=== PATIENT | female | born 1990 | race Caucasian/White ===

== ENCOUNTER 2025-07-07 19:46 | Emergency (ER) | payer BC, SELFPAY ==
[2025-07-07 19:55] VITALS: BP 138/84; PULSE 105; RESP 18; TEMP 36.4; O2SAT 98; BMI 22.4
[2025-07-07 19:59] LABS: Appearance Urine Clear (Clear)
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
--- OUTSIDE RECORDS SUMMARY | 2025-07-07 20:24 | XMS_ITS | Clinical Summary ---
Author Organization [facility] Address [address] [place] [id number] Phone Care Team Providers Care Biodiesel Engineering Manager Name Role Phone Elsewhere, Pcp Primary Care Provider Sarah Wooten MD Unavailable [phone] Allergies No known active allergies Medications * This document contains information received from the source organization and may not represent a complete record from that organization. citalopram (CELEXA) 10 MG tablet Take 1 Tab by mouth one time a day. 31 Tab 3 8 Active citalopram (CELEXA) 20 MG tablet 20 mg daily x 2 weeks then may increase to 40 mg 60 Tab 2 8 Active omeprazole (PRILOSEC) 20 MG delayed-release capsule Take 1 Cap by mouth one time a day. Take before meals. Do not crush. 31 Cap 11 8 Active Zofran ODT 4 MG disintegrating tablet Take 1 Tab by mouth every six hours as needed for Nausea or Vomiting. 10 Tab 0 Active Active Problems Problem Noted Date Diagnosed Date History of gestational diabetes 11/07/2018 Rh negative state in antepartum period 8 care, subsequent 04/30/2018 PTSD (post-traumatic stress disorder) 02/27/2018 Alcohol use disorder, severe, dependence 018 Overview (02/27/2018): Sober 53 days as of 02/27/18. Cannabis dependence 02/27/2018 Overview (02/27/2018): Sober 53 days as of 02/27/18. Benzodiazepine dependence 02/27/2018 Overview (02/27/2018): Sober 53 days as of 02/27/2018 Stimulant use disorder 02/27/2018 Overview (02/27/2018): History of meth, cocaine and prescription stimulants. Tobacco dependence 02/27/2018 Esophageal reflux 08/15/2007 Major depressive disorder, recurrent episode, mo derate 07/18/2007 Nausea with vomiting 07/01/2007 Resolved Problems Problem Noted Date Diagnosed Date Resolved Date Abdominal pain, generalized 07/01/2007 04/30/2018 Overview (02/09/2012): IMO Update 08/01 Lyme disease 10/10/2001 04/30/2018 Immunizations Immunization Administration Dates Next Due DTaP <7 years 08/04/1994 Human Papilloma Virus 9 07/01/2015 Human Papilloma Virus Quadrivalent 05/04/2014, Influenza Trivalent Live Int ranasal (Flumist) 11/12/2009 Influenza Trivalent Preservative Free 07/13/2010 Influenza Unspecified Formulation 11/12/2009 MMR 08/05/2009,12/21/2008,08/04/1994 OPV (Historic Use Only) 08/04/1994 Tdap (7 years and older) 10/30/2018,05/27/2013 Tdap-Tetanus, Diphtheria, Pertussis 11+ Yrs 10/2005 Surgical History Surgery Date Site/Laterality Comments KNEE ARTHROSCOPY/SURGERY 10/10/2000 left EGD BIOPSY SINGLE/MULTIPLE 07/03/2007 UPPER GASTROINTESTINAL ENDOSCOPY 12/26/2016 ([employer]) Medical History Medical History Date Comments Lyme disease 10/10/2001 Other, mixed, or unspecified nondependent drug abuse, unspecified 10/31/2006 Marijuana use cur rently and methamphetamine and adderall abuse in the past Abdominal pain, unspecified site 10/11/2006 Dysuria 10/11/2006 Urinary tract infection, sit e not specified 10/11/2006 Acute pharyngitis 10/11/2006 Multiple times Other malaise and fatigue 08/22/2006 Pain in limb 07/16/2006 Right lower extr emity pain chronic Contusion of elbow 07/16/2006 Right Sprain and strain of unspeci fied site of knee and leg 07/09/2006 Left Myopia 10/02/2001 Astigmatism, unspecified 10/02/2001 Nausea with vomiting 07/03/2006 Other specified disorder of the esophagus 07/03/2007 Orthostatic hypotension 09/14/2008 Drug reaction 09/14/2008 Possible drug re action (Ativan) Family History Medical History Relation Comments Asthma Brother Diabetes Father Other Endocrine Disease Father hypothyr oid, hypertension, Psychiatric Disease Father Bipolar, PTS D, Manic depression Asthma Mother Psychiatric Disease Mother Bipolar Ophthalmic Disease Other Myopia Other Endocrine Disease Sister 1 hypothyr oid Psychiatric Disease Sister 2 Bipolar Blood Disease Negative Family Hx Cancer Negative Family Hx Cardiovascular Disease Negative Family Hx GI Disease Negative Family Hx Relation Status Comments Brother Father Mother Other Sister 1 Sister 2 Social History Tobacco Use Types Packs/Day Years Used Date Smoking Tobacco: Former Cigarettes 0.5 2 1 12/08/2005 - 10/07/2008 Smokeless Tobacco: Never Tobacco Cessation:Ready to Q uit: No; Counseling Given: Yes Alcohol Use Standard Drinks/Week Comments No 0 (1 standard drink = 0.6 oz pur e alcohol) PHQ-2 Answer Date Recorded PHQ-2 Score 0 08/11/2018 Comments No Sex and Gender Information Value Date Recorded Sex Assigned at Not on file Legal Sex Female 2:00 AM GAME BIRD FARMER Gender Identity Not on file Sexual Orientation Not on file Obstetrics History Para Term AB IAB SAB Ectopic Molar Multiple Living Live Births 5 3 3 0 1 0 1 0 0 3 3 Date Outcome GA Total Labor Labor/2nd/3rd Weight Sex Type Anes PTL Esperanza A1 A5 Name Clin 2009 Term 38w 0d 2608 g (5 lb 12 oz) F INDUCT ION Epidur al Livin g Delivery Location:[facility] [place] 2011 SAB 5w0 d SAB 2012 Term 38w 3d 3204 g (7 lb 1 oz) M INDUCT ION Epidur al N Livin g Complications:Other Excessiv e Bleeding Delivery Location:[facility] 2016 Term 39w 0d 2948 g (6 lb 8 oz) F INDUCT ION Epidur al N Livin g Delivery Location:[facility] [place] Last Filed Vital Signs Vital Sign Reading Time Taken Comments Blood Pressure 124/85 10/07/2020 1:31 AM GAME BIRD FARMER Pulse 88 10/07/2020 1:31 AM GAME BIRD FARMER Temperature 37.6 C (99.6 F) 10/07/2020 1:31 AM GAME BIRD FARMER Respiratory Rate 17 10/07/2020 1:31 AM GAME BIRD FARMER Oxygen Saturation 100% 10/07/2020 1:31 AM GAME BIRD FARMER Inhaled Oxygen Concentration - - Weight 65.8 kg (145 lb) 10/06/2020 6:01 PM GAME BIRD FARMER Height 170.2 cm (5' 7) 10/06/2020 6:01 PM GAME BIRD FARMER Body Mass Index 22.71 10/06/2020 6:01 PM GAME BIRD FARMER Plan of Treatment Health Maintenance Due Date Last Done Comments Cervical Cancer Screening 1991 Last pap w/ HPV Testing 1991 Last pap w/o HPV Testing 1991 Hepatitis B Vaccine (Standin g Order) (1 of 3 - 19+ 3-dose series) 2010 Pneumococcal/PCV20 Vaccine: Pediatrics (2-5 yrs) and At-Risk Patients (6-49 yrs) (Standing Order) (1 of 2 - PCV) 2010 Influenza Vaccine Seasonal (Standing Order) (#1) 2025 07/13/2010, 11/12/2009, 11/12/2009 TETANUS (Standing Order) 10/30/2028 019, 05/27/2013, 08/22/2006, Additional history exists HPV Vaccine (Standing Order) Completed 07/2015, 05/04/2014, 11/02/2006 PERTUSSIS (Standing Order) Completed 10/30, 05/27/2013, 08/22/2006, Additional history exists Insurance [facility] Care Teams Biodiesel Engineering Manager Relationship Specialty Start Date End Date Elsewhere, Pcp PCP - General 02/09/11 Sarah Hdz MD [facility] [address] [place] [phone] Molding Sander residential insurance inspector 06/06/18
--- OUTSIDE RECORDS SUMMARY | 2025-07-07 20:24 | XMS_ITS | Clinical Summary ---
Author Organization [facility] Address [address] [place] [address] Care Team Providers Care Finisher Operator Name Role Phone No Primary/Referring, Phy Primary Care Provider Unavailable Source Comments You are receiving this document as you are listed as the primary care provider,follow-up provider, or the patient has been referred to you for consultation.This is in compliance with the Medicare and[facility] EHR Incentive Program,which states Providers who transition their patient to another setting of careor provider of care or refers their patient to another provider of care shouldprovide summary care record for each transition of care or referral. [employer] Allergies No known active allergies Medications multivitamin with minerals tablet Take 1 Tablet by mouth. 12/25/19 18 Active desvenlafaxine (PRISTIQ) 25 MG 24 hour release tablet Take 25 mg by mouth. 06/20/20 19 Active prazosin (MINIPRESS) 2 MG capsule TAKE 1 CAPSULE BY MOUTH THREE TIMES DAILY 270 Capsule 3 03/12/20 20 Active Additional Information Patient not taking.Reported on 07/05/2022 hydrOXYzine pamoate (VISTARIL) 50 MG capsule TAKE 1 CAPSULE BY MOUTH FOUR TIMES DAILY 120 Capsule 03/23/20 20 Active escitalopram oxalate (LEXAPRO) 20 MG tablet Take 1 Tablet by mouth daily. 90 Tablet 1 08/03/20 20 Active Additional Information Patient not taking.Reported on 07/05/2022 QUEtiapine (SEROQUEL) 50 MG tablet Take 1 Tablet (50 mg) by mouth two times a day. Active LORazepam (ATIVAN) 0.5 MG tablet Take 1 Tablet (0.5 mg) by mouth daily as needed. Active ondansetron (ZOFRAN-ODT) 4 MG disintegrating tablet Take by mouth. Activ e Active Problems Problem Noted Date Diagnosed Date Migraine headache 01/08/2020 Left hand pain 05/13/2019 History of gestational diabetes 11/07/2018 Gestational diabetes mellitu s (GDM) in third trimester controlled on oral hypoglycemic drug 11/05/2018 care, subsequent 04/30/2018 Rh negative state in antepartum period 8 Benzodiazepine dependence 02/27/2018 Overview (01/06/2020): Sober 53 days as of 02/27/2018 Cannabis dependence 02/27/2018 Overview (01/06/2020): Sober 53 days as of 02/27/18. PTSD (post-traumatic stress disorder) 02/27/2018 Stimulant use disorder 02/27/2018 Overview (01/06/2020): History of meth, cocaine and prescription stimulants. Tobacco dependence 02/27/2018 Tarsal tunnel syndrome, right 01/10/2018 Adjustment disorder with mixed anxiety and depre ssed mood 09/18/2017 Indication for care in labor and delivery, antep artum 06/16/2017 Eating disorder, nonorganic 10/26/2015 Hematuria 01/13/2015 Panic disorder without agoraphobia 05/03/2012 Supervision of normal first 03/16/2010 Alcohol dependence 11/05/2009 Overview (06/13/2017): Other and unspecified alcohol dependence, unspecified drinking behavior Lyme disease 11/03/2009 Overview (11/03/2009): States dxd 1999 Drug dependence 11/03/2009 Overview (07/22/2015): meth Epic Cannabis abuse 07/25/2009 Overview (01/06/2020): Utox positive 07/30 Combinations of drug dependence excluding opioid type drug 07/25/2009 Esophageal reflux 08/15/2007 Major depressive disorder, recurrent episode, mo derate 07/18/2007 Nausea with vomiting 07/01/2007 History of self-harm History of suicidal ideation Overview (05/26/2016): hospitalization three times for suicidal ideations (72 hours, 3 wks, 2 wks) Depression Anxiety Immunizations Immunization Administration Dates Next Due 4vHPV (Gardasil) 05/04/2014,11/02/2006 9vHPV (Gardasil 9) 07/01/2015 DTaP 08/04/1994 Flu Vac Preserv Free (3+yrs) 07/13/2010 Influenza LAIV3 2-49 years (Flumist) 11/12/2009 MMR 08/05/2009,12/21/2008,08/04/1994 OPV, Trivalent (Orimune or tOPV) 08/04/1994 Tdap 10/30/2018,05/27/2013,08/22/2006 Social History Tobacco Use Types Packs/Day Years Used Date Smoking Tobacco: Every Day Smokeless Tobacco: Never Alcohol Use Standard Drinks/Week Comments Not Currently 1 (1 standard drink = 0.6 oz pur e alcohol) No alcohol since 04/25/19 Comments No Sex and Gender Information Value Date Recorded Sex Assigned at Not on file Legal Sex Female 6:24 AM CDT Gender Identity Not on file Sexual Orientation Not on file Last Filed Vital Signs Vital Sign Reading Time Taken Comments Blood Pressure 117/92 09/27/2024 1:13 PM BACK STAYER Pulse 69 09/27/2024 1:13 PM BACK STAYER Temperature 36.6 C (97.9 F) 09/27/2024 1:13 PM BACK STAYER Respiratory Rate 16 09/27/2024 1:13 PM BACK STAYER Oxygen Saturation 99% 09/27/2024 1:13 PM BACK STAYER Inhaled Oxygen Concentration - - Weight 63.9 kg (140 lb 12.8 oz) 09/27/2024 1:13 PM BACK STAYER Height 171.1 cm (5' 7.36) 10/26/2015 1:08 PM CS T Body Mass Index 21.82 10/26/2015 1:08 PM BACK STAYER Plan of Treatment Health Maintenance Due Date Last Done Comments Cervical Cancer Screening Due 1991 Hep C Screening (Preventive Services) 1991 IPV (Polio) Vaccine (2 of 3 - 4-dose series) 09/01/1994 08/04/1994 Adult Preventive Visit 2009 HepB Vaccine (1) 2010 Pneumococcal Vaccine (1 of 2 - PCV) 2010 COVID-19 Vaccine (1 - 2023- season) 2025 Influenza Vaccine (#1) 2025 07/13/2010, 2009 DTaP/Tdap/Td Vaccine (5 - Tdap) 10/30/2028 10/30/2018, 05/27/2013, 08/22/2006, Additional history exists Zoster/Shingles Vaccine (1 of 2) 2041 HPV Vaccine Completed 07/01/2015, 04/21, 11/02/2006 HIV Screening (Preventive Services) Completed 04/26/2019 HepA Vaccine Aged Out No longer eligi ble based on patient's age to complete this topic Hib Vaccine Aged Out No longer eligi ble based on patient's age to complete this topic MCV4 Vaccine Aged Out No longer eligi ble based on patient's age to complete this topic Meningococcal B Vaccine Aged Out No l onger eligible based on patient's age to complete this topic [facility] Care Teams Finisher Operator Relationship Specialty Start Date End Date No Primary/Referring, Phy PCP - General 01/24/16
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
--- OUTSIDE RECORDS SUMMARY | 2025-07-07 20:24 | XMS_ITS | Clinical Summary ---
Author Organization [place] Address [address] [place] [address]. [place] [address] Care Team Providers Care Sawmilling Operator Name Role Phone No Ref-Primary, Physician Primary Care Provider Allergies No known active allergies Medications * This document contains information received from the source organization and may not represent a complete record from that organization. divalproex sodium extended-release (DEPAKOTE ER) 500 MG 24 hr tabletIndication s:Chemical dependency (H) Take 1 tablet (500 mg) by mouth At Bedtime 30 tablet 12/23/2017 Active traZODone (DESYREL) 50 MG tabletIndication s:Chemical dependency (H) Take 1 tablet (50 mg) by mouth nightly as needed for sleep 30 tablet 12/23/2017 Active multivitamin, therapeutic with minerals (THERA-VIT-M) TABS tabletIndication s:Chemical dependency (H) Take 1 tablet by mouth daily 30 each 12/24/2017 Active pantoprazole (PROTONIX) 40 MG EC tabletIndication s:Gastroesophage al Reflux Disease Take 1 tablet (40 mg) by mouth every morning (before breakfast) 30 tablet 12/24/2017 Active thiamine 100 MG tabletIndication s:Chemical dependency (H) Take 1 tablet (100 mg) by mouth daily 30 tablet 12/24/2017 Active Active Problems Problem Noted Date Diagnosed Date Chemical dependency 12/21/2017 Indication for care in labor and delivery, antep artum 06/16/2017 Marijuana abuse 07/25/2009 Overview (07/25/2009): Utox positive 07/30 Social History Tobacco Use Types Packs/Day Years Used Date Smoking Tobacco: Every Day Cigarettes Smokeless Tobacco: Never Tobacco Cessation:Ready to Q uit: No Alcohol Use Standard Drinks/Week Comments Yes 0 (1 standard drink = 0.6 oz pur e alcohol) uses hard liquor everyday Comments Unknown Sex and Gender Information Value Date Recorded Sex Assigned at Female 01/09/2024 7:46 PM CDT Legal Sex Female 4:52 AM CLOD PULLER Gender Identity Female 01/09/2024 7:46 PM CDT Sexual Orientation Straight 01/09/2024 7: 46 PM CDT Last Filed Vital Signs Vital Sign Reading Time Taken Comments Blood Pressure 132/89 12/24/2017 8:18 AM CLOD PULLER Pulse 68 12/24/2017 8:18 AM CLOD PULLER Temperature 36.2 C (97.1 F) 12/24/2017 8:18 AM CLOD PULLER Respiratory Rate 16 12/24/2017 8:18 AM CLOD PULLER Oxygen Saturation 100% 12/21/2017 3:17 AM CLOD PULLER Inhaled Oxygen Concentration - - Weight 61.2 kg (135 lb) 12/21/2017 12:45 AM CLOD PULLER Height 170.2 cm (5' 7) 12/21/2017 12:45 AM CLOD PULLER Body Mass Index 21.14 12/21/2017 12:45 AM CLOD PULLER Plan of Treatment Not on file Advance Directives For more information, please contact: [phone] * Full Code (Latest Code Status on File) Date Activated Date Inactivated Comments 12/21/2017 3:41 AM 12/24/2017 4:07 PM Care Teams Sawmilling Operator Relationship Specialty Start Date End Date No Ref-Primary, Physician PCP - General 12/21/17
--- NOTE | 2025-07-07 20:42 | CRLHL7_ITS ---
For Patients: As a result of the Century Cures Act, medical imaging exams and procedure reports are released immediately into your electronic medical record. You may view this report before your referring provider. If you have questions, please contact your health care provider. INDICATION: Hematuria. TECHNIQUE: CT abdomen and pelvis without contrast. COMPARISON: None. FINDINGS: Lower chest: Unremarkable. Liver: Normal in size and attenuation. No suspicious masses. Gallbladder and bile ducts: No stones or inflammation. No biliary dilatation. Pancreas: Unremarkable. No mass or inflammation. Spleen: Normal in size. No masses. Adrenal glands: Normal in size. No nodules. Kidneys: Normal in size. No suspicious masses, stones, or hydronephrosis. GI tract: Mild colonic stool burden. Normal in caliber. No sign of mass or inflammation. Normal appendix. Vasculature: Abdominal aorta is normal in caliber. Lymph nodes: No lymphadenopathy. Peritoneum/Abdominal Wall: Unremarkable. No sign of mass or infiltration. No free air or significant free fluid. Pelvis: Trace free fluid in the pelvis, likely physiologic. Mildly distended bladder with circumferential wall thickening. No pelvic masses. Bones: Unremarkable for age. IMPRESSION: No acute intra-abdominal/pelvic abnormality, including obstructive uropathy. Mildly distended bladder with circumferential wall thickening. Recommend correlation with urinalysis if UTI suspected. Trace free fluid in the pelvis, likely physiologic. Moderate colonic stool burden. Please note that all CT scans at this facility use dose modulation, iterative reconstruction, and/or weight-based dosing when appropriate to reduce radiation dose to as low as reasonably achievable. Dictated by Ho Desir MD @ 07/07/2025 9:24:13 PM (Electronically Signed)
[2025-07-07 21:03] LABS: Hematocrit* 34.8 % (33.0-51.0); Hemoglobin* 11.8 gm/dL (12.0-16.0); Immature Granulocytes Abs Auto 0.01 K/uL (0.00-0.30); Immature Granulocytes Pct Auto 0.2 %; Lymphocytes Absolute Auto 1.42 K/uL (0.90-2.90); Mean Corpuscular HGB Conc 34 gm/dL (32-36); Mean Corpuscular Hemoglobin 32 pg (26-34); Mean Corpuscular Volume 94 fL (80-100); RDW Coefficient of Variation % 12.0 % (11.5-15.5); Red Blood Count* 3.71 m/uL (4.00-5.20); White Blood Count* 6.38 K/uL (4.50-11.00)
[2025-07-07 21:04] LABS: Slide Review Reflex No
[2025-07-07 21:24] LABS: Chloride* 104 mmol/L (96-114); Sodium* 137 mmol/L (135-149)
[2025-07-07 21:25] LABS: Potassium* 3.8 mmol/L (3.6-5.1)
[2025-07-07 21:27] LABS: Anion Gap 8 mEq/L (7-15); Blood Urea Nitrogen* 17 mg/dL (5-24); Carbon Dioxide* 25 mmol/L (20-32); Creatine Kinase* 124 U/L (41-117); Creatinine* 0.7 mg/dL (0.5-1.5); Est. Creatinine Clearance* 110.12; Estimated Glomerular Filt Rate 116 ml/min
[2025-07-07 21:28] LABS: Calcium* 9.1 mg/dL (8.4-10.6); Glucose* 104 mg/dL (60-115)
== END 2025-07-07 22:05 | disposition home or self-care (01) ==
PROVIDERS: Emergency Provider Family Medicine
DX: R31.9 Hematuria, unspecified (principal)
CPT/HCPCS: 36415; 74176; 80048; 81001; 82550; 85025; 87086; 96360; 99284; J7030

== ENCOUNTER 2025-08-20 21:15 | Emergency (ER) | payer BC, SELFPAY ==
--- OUTSIDE RECORDS SUMMARY | 2025-08-20 21:18 | XMS_ITS | Clinical Summary ---
Author Organization [facility] Address [address] [place] [phone] Phone Care Team Providers Care Devops Solutions Architect Name Role Phone Elsewhere, Pcp Primary Care Provider Sarah Wooten MD Unavailable Allergies No known active allergies Medications * [...] 07/13/2010 Influenza Unspecified Formulation 11/12/2009 MMR 08/05/2009,12/21/2008,08/04/1994 Mantoux 10/31/2006 Mantoux 0mm Induration 11/02/2006 OPV (Historic Use Only) 08/04/1994 Tdap (7 years and older) 10/30/2018,05/27/2013 Tdap-Tetanus, Diphtheria, Pertussis 11+ Yrs 11/0 10/2005 Surgical History Surgery Date Site/Laterality Comments KNEE ARTHROSCOPY/SURGERY 10/10/2000 left EGD BIOPSY SINGLE/MULTIPLE 07/03/2007 UPPER GASTROINTESTINAL ENDOSCOPY 12/26/2016 ([facility] Medical History Medical History Date Comments Lyme [...] on file Legal Sex Female 2:00 AM LABEL CUTTER Gender Identity Not on file Sexual Orientation [...] INDUCT ION Epidur al Livin g [place] [place] 2011 SAB 5w0 d SAB 2012 Term 38w 3d 3204 g (7 lb 1 oz) M INDUCT ION Epidur al N Livin g Complications:Other Excessiv e Bleeding Delivery Location:[facility] 2016 Term 39w 0d 2948 g (6 lb 8 oz) F INDUCT ION Epidur al N Livin g Delivery Location:[facility] Last Filed Vital Signs Vital Sign Reading Time Taken Comments Blood Pressure 124/85 10/07/2020 1:31 AM LABEL CUTTER Pulse 88 10/07/2020 1:31 AM LABEL CUTTER Temperature 37.6 C (99.6 F) 10/07/2020 1:31 AM LABEL CUTTER Respiratory Rate 17 10/07/2020 1:31 AM LABEL CUTTER Oxygen Saturation 100% 10/07/2020 1:31 AM LABEL CUTTER Inhaled Oxygen Concentration - - Weight 65.8 kg (145 lb) 10/06/2020 6:01 PM LABEL CUTTER Height 170.2 cm (5' 7) 10/06/2020 6:01 PM LABEL CUTTER Body Mass Index 22.71 10/06/2020 6:01 PM LABEL CUTTER Plan of Treatment Health Maintenance Due Date Last Done Comments Cervical Cancer Screening 1991 Last pap w/ HPV Testing 1991 Last pap w/o HPV Testing 1991 Hepatitis B Vaccine (Standing Order) (1 of 3 - 19+ 3-dose series) 2010 COVID-19 Vaccine ( season) 2025 Influenza Vaccine Seasonal (Standing Order) (#1) 2025 07/13/2010, 11/12/2009, 11/12/2009 TETANUS (Standing Order) 10/30/2028 019, 05/27/2013, 08/22/2006, Additional history exists HPV Vaccine (Standing Order) Completed 07/01/2015, 05/04/2014, 11/02/2006 PERTUSSIS (Standing Order) Completed 10/30, 05/27/2013, 08/22/2006, Additional history exists Pneumococcal/PCV20 Vaccine: Pediatrics (2-5 yrs) and At-Risk Patients (6-49 yrs) (Standing Order) Aged Out No longer eligible based on patient's age to complete this topic Insurance [facility] Care Teams Devops Solutions Architect Relationship Specialty Start Date End Date Elsewhere, Pcp PCP - General 02/09/11 Sarah Hdz MD [facility] [address] [phone] Any Commodity Buyer orthopedic technician 06/06/18
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
--- OUTSIDE RECORDS SUMMARY | 2025-08-20 21:18 | XMS_ITS | Clinical Summary ---
Author Organization [facility] Address [address] [place] [address] Care Team Providers Care Airport Driver Name Role Phone No Primary/Referring, Phy Primary Care Provider Unavailable Source Comments You are receiving this document as you are listed as the primary care provider,follow-up provider, or the patient has been referred to you for consultation.This is in compliance with the Medicare and[facility] EHR Incentive Program,which states Providers who transition their patient to another setting of careor provider of care or refers their patient to another provider of care shouldprovide summary care record for each transition of care or referral. [facility] Allergies No known active allergies Medications multivitamin [...] Comments Blood Pressure 117/92 09/27/2024 1:13 PM PLUSH WEAVER Pulse 69 09/27/2024 1:13 PM PLUSH WEAVER Temperature 36.6 C (97.9 F) 09/27/2024 1:13 PM PLUSH WEAVER Respiratory Rate 16 09/27/2024 1:13 PM PLUSH WEAVER Oxygen Saturation 99% 09/27/2024 1:13 PM PLUSH WEAVER Inhaled Oxygen Concentration - - Weight 63.9 kg (140 lb 12.8 oz) 09/27/2024 1:13 PM PLUSH WEAVER Height 171.1 cm (5' 7.36) 10/26/2015 1:08 PM CS T Body Mass Index 21.82 10/26/2015 1:08 PM PLUSH WEAVER Plan of Treatment Health Maintenance Due Date [...] patient's age to complete this topic [facility] Care [facility] Airport Driver Relationship Specialty Start Date End Date No Primary/Referring, Phy PCP - General 01/24/16
--- OUTSIDE RECORDS SUMMARY | 2025-08-20 21:18 | XMS_ITS | Clinical Summary ---
Author Organization [facility] Address [address] [place] [address]. [place] [address] Care Team Providers Care Poker Room Manager Name Role Phone No Ref-Primary, Physician Primary [...] PM CDT Legal Sex Female 4:52 AM FINANCIAL COMPLIANCE EXAMINER Gender Identity Female 01/09/2024 7:46 PM CDT Sexual Orientation Straight 01/09/2024 7: 46 PM CDT Last Filed Vital Signs Vital Sign Reading Time Taken Comments Blood Pressure 132/89 12/24/2017 8:18 AM FINANCIAL COMPLIANCE EXAMINER Pulse 68 12/24/2017 8:18 AM FINANCIAL COMPLIANCE EXAMINER Temperature 36.2 C (97.1 F) 12/24/2017 8:18 AM FINANCIAL COMPLIANCE EXAMINER Respiratory Rate 16 12/24/2017 8:18 AM FINANCIAL COMPLIANCE EXAMINER Oxygen Saturation 100% 12/21/2017 3:17 AM FINANCIAL COMPLIANCE EXAMINER Inhaled Oxygen Concentration - - Weight 61.2 kg (135 lb) 12/21/2017 12:45 AM FINANCIAL COMPLIANCE EXAMINER Height 170.2 cm (5' 7) 12/21/2017 12:45 AM FINANCIAL COMPLIANCE EXAMINER Body Mass Index 21.14 12/21/2017 12:45 AM FINANCIAL COMPLIANCE EXAMINER Plan of Treatment Not on file Advance Directives For more information, please contact: [phone] * Full Code (Latest Code Status on File) Date Activated Date Inactivated Comments 12/21/2017 3:41 AM 12/24/2017 4:07 PM Care Teams Poker Room Manager Relationship Specialty Start Date End Date No Ref-Primary, Physician PCP - General 12/21/17
[2025-08-20 21:19] VITALS: BP 144/89; PULSE 100; RESP 16; TEMP 36.8; O2SAT 98; BMI 23.5
[2025-08-20 21:35] LABS: Appearance Urine Clear (Clear)
--- NOTE | 2025-08-20 22:53 | ED_ITS ---
HPI - General Adult General Chief complaint: Urogenital Problems, Female Stated complaint: blood in urine Time Seen by Provider: 08/20/25 22:11 History of Present Illness HPI narrative: 35-year-old female presenting to the ER today with concern for blood in her urine and lower abdominal pain. She feels like she is not able to completely empty her bladder. She has had previous tubal ligation. Was seen in the ER on 07/07 for hematuria and flank pain, feeling similar to previous urinary tract infections. During that visit labs showed a white count of 6, hemoglobin 11.8, platelet count of 209. BUN of 17 creatinine of 0.7. Urinalysis showed 2-5 white cells, 5-10 red cells, negative nitrite and bilirubin. She was treated with cephalexin. Urine culture from that visit showed no growth She was doing well up until about a week ago when she redeveloped symptoms of urinary urgency, frequency, intermittent hematuria. Also little bit of lower abdominal pain. Today also developing some pain in her left flank. Very mild nausea off and on but no vomiting. No fever. No weakness. She is generally history. No history of immunosuppression or diabetes. No previous bladder or kidney surgeries. Related Data Home Medications ?Medication ?Instructions ?Recorded ?Confirmed lorazepam 1 mg tablet 1 mg PO DAILY PRN anxiety 08/20/25 Previous Rx's ?Medication ?Instructions ?Recorded cefdinir 300 mg capsule 300 mg PO BID 10 days #20 ca ps 08/20/25 phenazopyridine 100 mg tablet 100 mg PO TID PRN pain # 14 tabs 08/20/25 (Pyridium) Allergies Allergy/AdvReac Type Severity Reaction Status Date / Time No Known Drug Allergies Allergy Verified 08/20/25 21:21 [facility] Social History Smoking Status: Current every day smoker Do you use any of these nicotine containing products: None Second hand tobacco smoke exposure: No How often do you have a drink containing alcohol: never AUDIT-C Alcohol total score: 0 Non-prescribed substance use: denies use service: No Exam Narrative: Exam Narrative: Constitutional: Appears well-developed and well-nourished. Alert. Conversant. N on toxic. HENT: Head: Atraumatic. Nose: Nose normal. Mouth/Throat: Oral mucosa is clear and moist. no trismus. Eyes: Conjunctivae normal. EOM normal. Pupils equal, round, and reactive to light. No scleral icterus. Neck: Normal range of motion. Neck supple. No tracheal deviation present. Cardiovascular: Normal rate, regular rhythm. No gallop. No friction rub. No murmur heard. Symmetric radial artery pulses Pulmonary/Chest: Effort normal. No stridor. No respiratory distress. No wheezes. No rales. No rhonchi . No tenderness. Abdominal: Soft. Nondistended. Mild left CVA tenderness. No lower abdominal tenderness. Musculoskeletal: RUE: Normal range of motion. No tenderness. No deformity LUE: Normal range of motion. No tenderness. No deformity RLE: Normal range of motion. No edema. No tenderness. No deformity LLE: Normal range of motion. No edema. No tenderness. No deformity Neurological: Alert and oriented to person, place, and time. Normal strength. CN II-VII intact. No sensory deficit. GCS eye subscore is 4. GCS verbal subscore is 5. GCS motor subscore is 6. Normal coordination Skin: Skin is warm and dry. No rash noted. No pallor. Normal capillary refill. Psychiatric: Normal mood. Normal affect. Const: Vital Signs, click to edit/add: Vital Signs - 24 hr 08/20/25 21:19 08/20/25 23:29 08/20/25 23:29 Temperature 98.2 F 98.2 F 98.2 F Pulse Rate [Pulse Oximeter] 100 89 89 Respiratory Rate 16 16 16 Blood Pressure [Ri t Upper Arm] 144/89 H 137/84 137/84 Pulse Oximetry 98 98 Oxygen Delivery Me thod Room Air Room Air Course Vital Signs Vital signs: Initial Vital Signs Temperature 98.2 F 08/20/25 21:19 Temperature Source Temporal Artery Scan 08/20/25 21:19 Pulse Rate 100 08/20/25 21:19 Respiratory Rate 16 08/20/25 21:19 Blood Pressure 144/89 H 08/20/25 21:19 Blood Pressure Mean 107 H 08/20/25 21:19 Blood Pressure Position Sitting 08/20/25 21:19 Pulse Oximetry 98 08/20/25 21:19 Oxygen Delivery Method Room Air 08/20/25 21:19 Vital Signs Temperature 98.2 F 08/20/25 21:19 Pulse Rate 100 08/20/25 21:19 Respiratory Rate 16 08/20/25 21:19 Blood Pressure 144/89 H 08/20/25 21:19 Pulse Oximetry 98 08/20/25 21:19 Oxygen Delivery Method Room Air 08/20/25 21:19 Temperature 98.2 F 08/20/25 23:29 Pulse Rate 89 08/20/25 23:29 Respiratory Rate 16 08/20/25 23:29 Blood Pressure 137/84 08/20/25 23:29 Pulse Oximetry 98 08/20/25 23:29 Oxygen Delivery Method Room Air 08/20/25 23:29 Medications Administered Medications: Discontinued Medications Generic Name Dose Route Start Last Admin Trade Name Freq PRN Reason Stop Dose Admin Cefuroxime Axetil 500 mg 08/20/25 23:10 08/20/25 23:21 Cefuroxime Axetil 500 Mg Tablet PO 08/20/25 23:11 500 mg ONCE ONE Administration Phenazopyridine HCl 100 mg 08/20/25 23:08 08/20/25 23:21 Phenazopyridine Hcl 200 Mg Tablet PO 08/20/25 23:09 100 mg ONCE ONE Administration Medical Decision Making [facility] Narrative Medical decision making narrative: This patient presents for evaluation of several day history of dysuria, urgency, frequency came hematuria. Now developing also some left flank pain.. This clinically is consistent with a urinary tract infection. Urinalysis confirms the infection. There has been no fever, significant abdominal pain. However she does have some left flank pain which raises concern for possible early pyelonephritis. At this point I think she would be managed in the outpatient setting with oral antibiotics. No evidence for urosepsis with septic shock. No severe flank pain to raise concern for obstructing kidney stone. At this point I feel that the risk of radiation from CT scan would outweigh the benefit. Will treat the patient with a course of outpatient antibiotics. Since she was recently on antibiotics about a month ago this has the potential to be a resistant pathogen. Urine cultures pending. Will start on 3rd generation cephalosporin. Prescription for Omnicef sent to her pharmacy. Also for him for symptomatic relief from her dysuria symptoms. There is no clinical evidence of appendicitis, colitis, diverticulitis or any intraabdominal catastrophe. The patient will be started on antibiotics for the infection. Return if increasing pain, vomiting, fever, or inability to tolerate the oral antibiotic. Follow up with primary physician is indicated if not improving in 2-3 days. Lab Data Labs: Lab Results 08/20/25 Range/Units 21:22 Urine Color Yellow (Yellow) Urine Appearance Clear (Clear) Urine pH 7.0 (5.0-8.5) Ur Specific [place] 1.020 (1.000-1.030) Urine Protein 1+ A (Negative) Urine Glucose (UA) Negative (Negative) Urine Ketones Negative (Negative) Urine Blood 3+ A (Negative) Urine Nitrite Negative (Negative) Urine Bilirubin Negative (Negative) Urine Urobilinogen 0.2 (0.2-1.0) Ur Leukocyte Esterase 2+ A (Negative) Urine RBC 5-10 A (0-2) Urine WBC 10-25 A (0-5) Ur Squamous Epith Cells Few (None-Few) Urine Bacteria Few A (None) Discharge Plan Discharge Clinical Impression: Pyelonephritis Patient Disposition: Home, Self-Care Condition: Stable Instructions: Kidney Infection (ED) Additional Instructions: As we discussed, right now your urinalysis showed signs of an infection I think you probably have a left kidney infection in addition to a routine bladder infection. It is very important to treat this with antibiotics. We have given your 1st dose tonight. Please fill your prescription and continue your antibiotic twice daily for 10 days. You can use pyridium (phenaopyridine) if needed up to 3 times daily to help treat urinary urgency and burning. Peridium may cause your urine turn orange. Please come back to the ER right away if you have worsening symptoms especially high fever, weakness, vomiting, worsening pain in your kidney, abdominal pain, or any other problems. Prescriptions: New phenazopyridine [Pyridium] 100 mg tablet 100 mg PO TID PRN (Reason: pain) Qty: 14 0RF cefdinir 300 mg capsule 300 mg PO BID 10 Days Qty: 20 0RF No Action lorazepam 1 mg tablet 1 mg PO DAILY PRN (Reason: anxiety) Follow Up/Referrals: Provider,Not a Local [Primary Care Provider, Family Practice] Stand Alone Forms: [employer]th Info Instructions
[2025-08-20] MEDS: PHENAZOPYRIDINE HCL 200 MG TABLET 100 MG PO (23:21)
[2025-08-20 23:29] VITALS: BP 137/84; PULSE 89; RESP 16; TEMP 36.8; O2SAT 98
== END 2025-08-20 23:30 | disposition home or self-care (01) ==
PROVIDERS: Emergency Provider Emergency Medicine
DX: N12 Tubulo-interstitial nephritis, not specified as acute or chronic (principal)
CPT/HCPCS: 81001; 87086; 99282; 99283; 99284; A9270

== ENCOUNTER 2025-10-20 13:42 | Emergency (ER) | payer BC, SELFPAY ==
--- OUTSIDE RECORDS SUMMARY | 2025-10-20 13:45 | XMS_ITS | Clinical Summary ---
Author Organization [facility] Address [address] [place] [address] Care Team Providers Care Javascript Developer Name Role Phone No Primary/Referring, Corneliay Primary Care Provider Unavailable Source Comments You are receiving this document as you are listed as the primary care provider,follow-up provider, or the patient has been referred to you for consultation.This is in compliance with the Medicare and[facility] EHR Incentive Program,which states Providers who transition their patient to another setting of careor provider of care or refers their patient to another provider of care shouldprovide summary care record for each transition of care or referral. [facility] Allergies No known active allergies Medications MedicationSigDispense QuantityRefillsLast FilledStart DateEnd DateStatus multivitamin with minerals tablet Take 1 Tablet by mouth.12/24/2017Active desvenlafaxine (PRISTIQ) 25 MG 24 hour release tablet Take 25 mg by mouth.06/20/2019Active prazosin (MINIPRESS) 2 MG capsule TAKE 1 CAPSULE BY MOUTH THREE TIMES DAILY 270 Capsule Active Additional Information Patient not taking.Reported on 07/05/2022 hydrOXYzine pamoate (VISTARIL) 50 MG capsule TAKE 1 CAPSULE BY MOUTH FOUR TIMES DAILY 120 Capsule 03/23/2020Active escitalopram oxalate (LEXAPRO) 20 MG tablet Take 1 Tablet by mouth daily. 90 Tablet Active Additional Information Patient not taking.Reported on 07/05/2022 QUEtiapine (SEROQUEL) 50 MG tablet Take 1 Tablet (50 mg) by mouth two times a day.Active LORazepam (ATIVAN) 0.5 MG tablet Take 1 Tablet (0.5 mg) by mouth daily as needed.Active ondansetron (ZOFRAN-ODT) 4 MG disintegrating tablet Take by mouth.Active Active Problems ProblemNoted DateDiagnosed DateMigraine /19/2020Left hand pain 05/13/2019History of gestational /17/2019Gestational diabetes mellitus (GDM) in third trimester controlled on oral hypoglycemic drug11/05/2018Prenatal care, subsequent /10/2018Rh negative state in antepartum period 04/30/2018Benzodiazepine sloclubvmf23/09/2018 Overview (01/06/2020): Sober 53 days as of 02/27/2018 Cannabis qrmatjljix36/09/2018 Overview (01/06/2020): Sober 53 days as of 02/27/18. PTSD (post-traumatic stress disorder)02/27/2018Stimulant use mayosqhs01/09/2018 Overview (01/06/2020): History of meth, cocaine and prescription stimulants. Tobacco qfllnzjuql47/09/2018Tarsal tunnel syndrome, right01/10/2018Adjustment disorder with mixed anxiety and depressed mood09/18/2017Indication for care in labor and delivery, ijdlzzfngy53/26/2017Eating disorder, ehnakvlmyl35/05/2016 Yuximyzka14/25/2015Panic disorder without uacbwiejzse85/13/2012Supervision of normal first nrncluetf96/26/2010lcohol jtbavedomq46/15/2010 Overview (06/13/2017): Other and unspecified alcohol dependence, unspecified drinking behavior Lyme tbaavvl9211/03/2009 Overview (11/03/2009): States dxd 1999 Drug lnpjerkbsr26/13/2010 Overview (07/22/2015): meth Epic Cannabis abuse07/25/2009 Overview (01/06/2020): Utox positive 07/30 Combinations of drug dependence excluding opioid type drug07/25/2009Esophageal htygvl3308/15/2007Major depressive disorder, recurrent episode, kwgcwwpy39/27/2007 Nausea with csvlvuxo49/10/2007History of self-harmHistory of suicidal ideation Overview (05/26/2016): hospitalization three times for suicidal ideations (72 hours, 3 wks, 2 wks) DepressionAnxiety Immunizations ImmunizationAdministration DatesNext Xpa9zJCH (Gardasil)05/04/2014,11/02/2006 9vHPV (Gardasil 9)07/01/2015DTaP1Flu Vac Preserv Free (3+yrs)07/13/2010 Influenza LAIV3 2-49 years (Flumist)11/12/2009MMR1,12/21/2008, 08/04/1994OPV, Trivalent (Orimune or tOPV)08/04/1994Tdap10/30/2018,05/27/2013, 08/22/2006 Social History Tobacco UseTypesPacks/DayYears UsedDateSmoking Tobacco: Every DaySmokeless Tobacco: NeverAlcohol UseStandard Drinks/WeekCommentsNot Currently1 (1 standard drink = 0.6 oz pure alcohol)No alcohol since 04/25/19CommentsNoSex and Gender InformationValueDate RecordedSex Assigned at BirthNot on fileLegal Sex Kxjksz5007/31/2012 6:24 AM CDTGender IdentityNot on fileSexual OrientationNot on file Last Filed Vital Signs Vital SignReadingTime TakenCommentsBlood Cjoowjav045/9209/27/2024 1:13 PM [employer] Xtqwk789809/27/2024 1:13 PM YKHKixtnafvutp94.6 ??C (97.9 ??F)09/27/2024 1:13 PM CSTRespiratory Nldg966311/28/2023 1:13 PM CSTOxygen Xlewhgzdir49%09/27/2024 1:13 PM CSTInhaled Oxygen Concentration--Frxmlf95.9 kg (140 lb 12.8 oz)09/27/2024 1:13 PM XLPCdwbou866.1 cm (5' 7.36)10/26/2015 1:08 PM CSTBody Mass Index21.82 10/26/2015 1:08 PM [employer] Plan of Treatment Health MaintenanceDue DateLast DoneCommentsCervical Cancer Screening Due 1991Hep C Screening (Preventive Services)1991IPV (Polio) Vaccine (2 of 3 - 4-dose series)Adult Preventive Visit2009HepB Vaccine (1)2010Pneumococcal Vaccine (1 of 2 - PCV)2010COVID-19 Vaccine (1 - season)2025Influenza Vaccine (#1)2025 07/13/2010, 11/12/2009DTaP/Tdap/Td Vaccine (5 - Tdap), 05/27/2013, 08/22/2006, Additional history existsZoster/Shingles Vaccine (1 of 2)2041HPV ErcpjsmLobdtnoyl14/10/2015, 05/04/2014, 11/02/2006HIV Screening (Preventive Services)Rofkwyuht00/06/2019HepA VaccineAged OutNo longer eligible based on patient's age to complete this topicHib VaccineAged OutNo longer eligible based on patient's age to complete this topicMCV4 VaccineAged OutNo longer eligible based on patient's age to complete this topicMeningococcal B VaccineAged OutNo longer eligible based on patient's age to complete this topic Insurance * Guarantor: Ramos Alanis TypeRelation to PatientDate of BirthPhone Billing AddressPersonal/[id number] [address] [address] [address] [place] [address] * Guarantor: Ramos Alanis TypeRelation to PatientDate of BirthPhone Billing AddressPersonal/[id number] [place] [address] Care Teams Team MemberRelationshipSpecialtyStart DateEnd Date No Primary/Referring, Bridgette PCP - General01/24/16
--- OUTSIDE RECORDS SUMMARY | 2025-10-20 13:45 | XMS_ITS | Clinical Summary ---
Author Organization [facility] Address [address] [place] [address] Care Team Providers Care Preassembler Printed Circuit Board Name Role Phone Gab Min MD Unavailable Pcp, No Primary Care Provider Unavailabl e Allergies No known active allergies Medications * This document contains information received from the source organization and may not represent a complete record from that organization. MedicationSigDispense QuantityRefillsLast FilledStart DateEnd DateStatus QUEtiapine (SEROQUEL XR) 50 mg Tb24 Extended-Release tablet Take 50 mg by mouth once daily.4Active LORazepam (ATIVAN) 0.5 mg tab TAKE 1 TABLET BY MOUTH DAILY NEEDED FOR SEVERE ANXIETY/PANIC ATTACK. 4Active busPIRone 7.5 mg tablet Take 1 Tablet by mouth two times daily.5Active Active Problems ProblemNoted DateDiagnosed DateConcussion with no loss of consciousness 4Post-concussion rvxyjalc17/21/5473Rjpyhs62/21/2024Post-concussion iaornnzj68/21/2024Neck pain09/11/2024ervical cancer tmiuegssl88/01/2022 Overview (04/16/2025): 03/2022 NIL/ HPV negative 03/2025 NIL/HPV negative Plan: HPV based testing due 03/2030 Long Q-T jsmittrq60/26/4421Ewjkhuh21/21/2020History of self-harm03/11/2020 History of suicidal btrqyroy86/21/2020 Overview (03/11/2020): hospitalization three times for suicidal ideations (72 hours, 3 wks, 2 wks) Migraine dksuhmnv82/19/2020History of gestational gteprqmy12/17/2019PTSD (post- traumatic stress disorder)02/27/2018Benzodiazepine erallhitdv36/09/2018 Overview (03/11/2020): Overview: Sober 53 days as of 02/27/2018 Sober 53 days as of 02/27/2018 Cannabis puysdvmcjk73/09/2018 Overview (03/11/2020): Overview: Sober 53 days as of 02/27/18. Sober 53 days as of 02/27/18. Stimulant use jvilkglp16/09/2018 Overview (03/11/2020): Overview: History of meth, cocaine and prescription stimulants. History of meth, cocaine and prescription stimulants. Alcohol bztcbdrnti32/22/2018Adjustment disorder with mixed anxiety and depressed mood09/18/2017Eating disorder, cgxpmihhwq19/05/2016Combinations of drug dependence excluding opioid type drug07/25/2009Major depressive disorder, recurrent episode, fymsanbq21/27/2007Frequent UTIGERD (gastroesophageal reflux disease)Hypothyroidism Resolved Problems ProblemNoted DateDiagnosed DateResolved MpmmQoqqhfqryf43Left hand painNSVD (normal spontaneous vaginal delivery) Gestational diabetes mellitus (GDM) in third trimester controlled on oral hypoglycemic drugPrenatal care, subsequent in third snmlzvgak09 Overview (12/19/2018): 24 6/7 week transfer from [facility]. ABO/RH: A negative, Antibody Screen:negative, CBC/Platelets:__, HIV:__, Hep B.:__, Chl/GC:__, UC:__, Rubella: immune, Treponema Pallidum:__. Prepregnancy BMI: 25.13 Early GCT: not indicated ASA: not indicated Dated by: LMP, no dating US Previous deliveries reviewed by : YFN X 3 screening: declined Screening US: incomplete, f/u normal Wants PP interval salpingectomy: papers signed Rubella: immune Rh neg, Rhogam: given GCT: failed one hour, failed 3 hour based on fasting value. Hgb:9.3. No improvement with oral iron. IVFe at 36 wks TDap:given Flu: declines GBS: neg Tarsal tunnel syndrome, right39 weeks gestation of Prenatal care, subsequent in first trimester Overview (09/04/2017): SPK, FOB not involved. Unplanned [...] girl S<D at 28 weeks, US.: normal Hlkzciiqw395901Jsmapssfjygzyqb57/12/Supervision of other normal iaxwqumxe43/12/Prenatal care, subsequent 03/03/Prenatal care, subsequent toqhjjrzb48/14/ Nausea/vomiting in /12/Prenatal care, subsequent bibydmfsz61/23/ Overview (06/25/2013): SPK, FOB involved. Planned preg. [...] Tdap given GBS: negative Panic disorder without xiptnvfhdvj77Normal mgioituo63/18/2010 05/04/2014IUGR (intrauterine growth restriction)10/07/Supervision of normal first eawmtwqys03lcohol use disorder, severe, qizysogeeu43 Overview (03/11/2020): Overview: Sober 53 days as of 02/27/18. Other and unspecified alcohol dependence, unspecified drinking behavior Drug Overview (03/11/2020): meth Epic Lyme bjyejai45 Overview (03/11/2020): States dxd 1999 Cannabis abuse Overview (03/11/2020): Overview: Utox positive 07/30 Utox positive 07/30 Bacterial xvolqwexp90 Overview (07/25/2009): Currently on antibiotics Esophageal rmetkz02regnancy with flank pain, antepartum 04/10/20192420Xmvmspgsgefrci12/26/2022 Encounters DateTypeDepartmentCare UbnsUavfvpjpcik53/19/2025Telephone [facility] [place] [address] [place] [address] Catarina Aquino NP 09/05/20251993Oqdbns38/27/2025 11:41 AM CDT - 08/17/2025 11:59 PM CDTHospital Encounter [facility] [address] [facility] [address] [place] [address] Catarina Aquino, Ciera Buchanan, PT 08/17/20257790Ugnfux16/09/2025 12:15 PM CDT - 07/30/2025 11:59 PM CDTHospital Encounter [facility] [address] [facility] [address] [place] [address] Catarina Aquino, Ciera Buchanan, PT 07/30/2025Travelfrom Last 3 Months Immunizations ImmunizationAdministration DatesNext IemYLxO66/14/1994HPV 9 (Gardasil 9) 07/01/2015Human Papilloma Virus Ypimahe8207/01/2015,05/04/2014,11/02/2006 09/04/2014Inactivated Polio Qiiobft3208/04/1994Influenza Virus, Unspecified 11/12/2009Influenza, IIV3 (Age 6-35 mos)07/13/2010Influenza, IIV3 (Age >=3 years)07/13/2010Influenza, GGX170(Deferred: - Last 24 hours pt has had temp >101)Influenza,LAIV3 Live Intranasal (Flumist)11/12/2009Influenza,LAIV4 Live Intranasal (Flumist)11/12/2009MMR, Ihyxpijauls08/15/2009,12/21/2008, 08/04/1994Oral Polio Sxidiqp0508/04/1994Tdap10/30/2018,05/27/2013,08/22/2006 05/27/2023Tuberculin (PPD)08/31/2009 Family History Medical HistoryRelationNameCommentsAlcoholismFatherDiabetesFatherType 2Heart DiseaseFatherHypertensionFatherGood HealthMotherCancerPaternal Aunt 1Cervical CancerPaternal Aunt 2CervicalHeart DiseasePaternal GrandfatherThyroid Disease SisterRelationNameStatusCommentsFatherAliveMotherAlivePaternal Aunt 1Paternal Aunt 2Paternal GrandfatherSister Social History Tobacco UseTypesPacks/DayYears UsedDateSmoking Tobacco: FormerCigarettes0.53.6 Started: 03/20/2022mokeless Tobacco: Never Tobacco Cessation:Counseling Given: Not Answered Alcohol UseStandard Drinks/WeekCommentsYes0 (1 standard drink = 0.6 oz pure alcohol)ocasionalPHQ-2AnswerDate RecordedPHQ-2 TOTAL CAEVQ226Social ConnectionsAnswerDate RecordedDo you often feel lonely or isolated from those around you?Financial Resource StrainAnswerDate RecordedDifficulty of Paying Living Kllmoubj910/28/2024Difficulty of Paying Living ExpensesNot on file 08/18/2024Food InsecurityAnswerDate RecordedDo you worry your food will run out before you are able to buy more?Transportation NeedsAnswerDate RecordedDoes lack of transportation keep you from medical appointments?1 08/18/2024oes lack of transportation keep you from work, meetings or getting things that you need?Housing StabilityAnswerDate RecordedWhat is your housing situation today?Interpersonal SafetyAnswerDate RecordedAre you being hit, kicked, pushed or yelled at (see row info)?No11/06/2024 Interpersonal Safety Abuse 12 - 18Not on file11/06/2024Interpersonal Safety Ambulatory VulnerabilityNot on file11/06/2024UtilitiesAnswerDate RecordedDo you have trouble paying for utilities (for example, heat, electricity, water, phone)?regnantCommentsNoSex and Gender InformationValueDate Recorded Sex Assigned at BirthNot on fileLegal DmgTmhazj93/14/2013 5:19 AM CSTGender IdentityNot on fileSexual OrientationNot on fileOccupationIndustryJob Start Date Job End DatehomemakerNot on fileNot on fileNot on file Obstetrics History GravidaParaTermPretermABIABSABEctopicMultipleLivingLive [id number] OutcomeGATotal LaborLabor/2nd/6ddKkrrttYjhUrkwLsoqDLKPlaT5C3BpqnTxwc40/18/2010 Nvcs03h9e83o 00m/2.61 kg (5 lb 12 oz)FVAGINAL INDUEpiduralNLivingMylaSprague Delivery Location:[facility] Comments:No complications. Baby born healthy. 06/21/20129337MKS5y3iKLYRWYNDZKPUzseu Comments:No complications.07/03/20131409Rafo85m2s 3.22 kg (7 lb 1.6 oz)MVAGINAL KFZLWzbrbdrzLAcibvv75NalgfdxBjxieerr [facility]. No other complications.09/04/2017 Eyyw95s5x7.95 kg (6 lb 8.1 oz)FVag-LuayhHntirrqkXEhmjrq85YhwyuoA. Patti [facility]: complicated by maternal drug use (marijuana)12/19/20183396Xyhn41k3y7o 03m3.45 kg (7 lb 9.7 oz)MVagEpidural TRUDI SouzaComplications:NoneDelivery Location:[facility] ([facility]) Last Filed Vital Signs Vital SignReadingTime TakenCommentsBlood Blftplru629/80004/01/2025 1:48 PM CDT Mgxwg83079/16/2025 9:35 AM RYGFrannralosj32 ??C (98.6 ??F)11/06/2024 9:35 AM OUTBOUND SALES SPECIALIST Respiratory Lpos991911/06/2024 9:35 AM CSTOxygen Kaizgkonil57%11/06/2024 9:35 AM CSTInhaled Oxygen Concentration--Fqvboq82.3 kg (144 lb)04/01/2025 1:48 PM CDT Unwfdk490.1 cm (5' 7.75)04/01/2025 1:48 PM CDTBody Mass Index22.0604/01/2025 1:48 PM CDT Plan of Treatment DateTypeDepartmentCare Team (Latest Contact Info)Jddvabzqqra73/05/2026 1:20 PM CSTOffice Visit [facility] [place] [address] [address] [place] [address] Catarina Aquino, [employer] [address] [place] [address] 01/07/2026 10:30 AM CDTOffice Visit [facility] [place] [address] [facility] [place] [address] [place] [address] [place] [address] Health MaintenanceDue DateLast DoneCommentsHepatitis B series for 19+ (1 of 3 - 19+ 3-dose series)2010Pneumococcal series for age 6-49 (1 of 2 - PCV) 2010COVID-19 vaccine series ( - 2024- season)2025Influenza Vaccine (#1), 07/13/2010, 11/12/2009, Additional history existsBMI (ht and wt on same day) for age 18+, 04/25/2022, 11/16/2021, Additional history existsDepression screening for age 12+04/01/2026 04/01/2025, 04/25/2022, 03/28/2022, Additional history existsTetanus booster /06/2019, 05/27/2013, 08/22/2006, Additional history existsPap test for age 21-650, 04/01/2025, 03/27/2022, Additional history existsHPV series for age 9-84Qjkkxuohn21/10/2015, 07/01/2015, 05/04/2014, Additional history existsHIV for age 15-19Irpewyyxc20/06/2019, 01/12/2018, 01/16/2017, Additional history existsHepatitis C screening for age 18-79 Whjrlbhhc73/06/2019, 01/16/2017, 07/11/2012, Additional history exists Procedures Procedure NamePriorityDate/TimeAssociated DiagnosisCommentsHPV HIGH RISKRoutine 04/01/2025 3:09 PM CDT Screening for malignant neoplasm of cervix ANTI HIV 1/7Pqywx3004/26/2019 8:31 AM CDT ACUTE HEPATITIS IEBZFZbmvb07/06/2019 8:31 AM CDT from Last 3 Months or Most Recently Relevant to Health Maintenance Results * HPV HIGH RISK (04/01/2025 3:09 PM CDT)ComponentValueRef RangeTest Method Analysis TimePerformed AtPathologist SignatureTYPE 16NegativeNegative 04/06/2025 2:46 PM CD[facility] LABORATORYTYPE 18 UhzufolcYfpijpxg24/16/2025 2:46 PM CDGRE[facility] LABORATORYOTHER HIGH RISK NUZOSVnoxktwhNblamahr03/16/2025 2:46 PM [facility] LABORATORYSpecimen (Source)Anatomical Location / LateralityCollection Method / VolumeCollection TimeReceived TimeOther (Cervical)Non-Blood / Rbsscxz3404/01/2025 3:09 PM CDT04/02/2025 10:30 AM CDT Narrative [facility] - 04/06/2025 2:46 PM CDT HPV types 16, 18, 31, 33, 35, 39, 45, 51, 52, 56, 58, 59, 66 and 68 DNA were undetectable or below the pre-set threshold. Methodology: Idalmis Abi 4800 HPV Test Authorizing ProviderResult TypeResult StatusNancy [facility] MDMICROBIOLOGY Final ResultPerforming OrganizationAddressCity/State/ZIP CodePhone Number [facility] [address] [place] [address], * ANTI HIV 1/2 (04/26/2019 8:31 AM CDT)ComponentValueRef RangeTest Method Analysis TimePerformed AtPathologist SignatureHIV-1/HIV-2 ANTIBODYNon-Reactive Non-Xkrcntgu26/06/2019 11:18 AM CD[facility] Comment:HIV-1 p24 and HIV-1/HIV-2 Ab not detected.Specimen (Source)Anatomical Location / LateralityCollection Method / VolumeCollection TimeReceived Time BloodBLOOD SPECIMEN / UnknownButterfly / Zuvwibe9904/26/2019 8:31 AM CDT 04/26/2019 8:38 AM CDT Narrative Authorizing ProviderResult TypeResult StatusAshley Silvestre NPSEND OUTSFinal Result Performing OrganizationAddressCity/State/ZIP CodePhone Number [facility] [address] [place] [address], * ACUTE HEPATITIS PANEL (04/26/2019 8:31 AM CDT)ComponentValueRef RangeTest MethodAnalysis TimePerformed AtPathologist SignatureHEPATITIS C ANTIBODY Ozz-CvtrmhsvIci-Unzzjmxu33/06/2019 11:18 AM [facility] LABORATORYComment:Antibodies to HCV not detected; does not exclude the possibility of exposure to HCV.IGM ANTI RLGLgv-RtssdwsrDqd-Nzbwclxz01/06/2019 11:18 AM [facility] LABORATORYHBSAGNonreactive Mbxifponbvn70/06/2019 11:18 AM [facility] IGM ANTI WKGWto-GlfxpuriVvz-Dmmuoqbw14/06/2019 11:18 AM [facility] LABORATORYSpecimen (Source)Anatomical Location / Laterality Collection Method / VolumeCollection TimeReceived TimeBloodBLOOD SPECIMEN / UnknownButterfly / Ksvkccl7204/26/2019 8:31 AM CDT04/26/2019 8:38 AM CDT Narrative [facility] - 04/26/2019 11:18 AM CDT Anti-HBc IgM not detected. Does not exclude the possibility of exposure to or infection with HBV. Authorizing ProviderResult TypeResult StatusGladismaxineadela Silvestre NPSEND OUTSFinal Result Performing OrganizationAddressCity/State/ZIP CodePhone Number [facility] [address] [place] [address], from Last 3 Months or Most Recently Relevant to Health Maintenance Insurance * Guarantor: Veronika Alanis TypeRelation to PatientDate of BirthPhone Billing AddressPersonal/QbuuptIjok1990 [address] [address] [address] Advance Directives * Full Code (Latest Code Status on File) Date ActivatedDate InactivatedComments04/27/2022 7:16 AM04/27/2022 2:45 PMQuestion AnswerCommentsCode Status Discussion:* Other * Full Code Date ActivatedDate InactivatedComments07/16/2020 5:17 PM07/19/2020 2:58 PMQuestion AnswerCommentsCode Status Discussion:* Not Discussed * Full Code Date ActivatedDate InactivatedComments05/01/2019 3:52 PM05/23/2019 2:53 PM * Full Code Date ActivatedDate InactivatedComments04/25/2019 3:10 PM05/01/2019 3:52 PMQuestion AnswerCommentsCode Status Discussion:* Other (specify in comments): * Full Code Date ActivatedDate InactivatedComments03/04/2019 11:31 AM03/04/2019 6:42 PM Care Teams Team MemberRelationshipSpecialtyStart DateEnd Date Pcp, No [address] [place] [address] [place] [address] PCP - General11/28/24 Gab Min MD [address] [place] [address] [place] [address] CardiologyCardiovascular Sqgwaax56/12/21
--- OUTSIDE RECORDS SUMMARY | 2025-10-20 13:45 | XMS_ITS | Clinical Summary ---
Author Organization [facility] Address [address] [place] [address]. [place] [address] Care Team Providers Care Head Worker Name Role Phone No Ref-Primary, Physician Primary Care Provider Allergies No known active allergies Medications * This document contains information received from the source organization and may not represent a complete record from that organization. MedicationSigDispense QuantityRefillsLast FilledStart DateEnd DateStatus divalproex sodium extended-release (DEPAKOTE ER) 500 MG 24 hr tablet Indications:Chemical dependency (H)Take 1 tablet (500 mg) by mouth At Bedtime 30 tablet 12/23/2017Active traZODone (DESYREL) 50 MG tablet Indications:Chemical dependency (H)Take 1 tablet (50 mg) by mouth nightly as needed for sleep 30 tablet 12/23/2017Active multivitamin, therapeutic with minerals (THERA-VIT-M) TABS tablet Indications:Chemical dependency (H)Take 1 tablet by mouth daily 30 each 12/24/2017Active pantoprazole (PROTONIX) 40 MG EC tablet Indications:Gastroesophageal Reflux DiseaseTake 1 tablet (40 mg) by mouth every morning (before breakfast) 30 tablet 12/24/2017Active thiamine 100 MG tablet Indications:Chemical dependency (H)Take 1 tablet (100 mg) by mouth daily 30 tablet 12/24/2017Active Active Problems ProblemNoted DateDiagnosed DateChemical jwyqrblsio55/02/2018Indication for care in labor and delivery, qtlwdqkfuy57/26/2017Marijuana abuse07/25/2009 Overview (07/25/2009): Utox positive 07/30 Social History Tobacco UseTypesPacks/DayYears UsedDateSmoking Tobacco: Every DayCigarettes Smokeless Tobacco: Never Tobacco Cessation:Ready to Q uit: No Alcohol UseStandard Drinks/WeekCommentsYes0 (1 standard drink = 0.6 oz pure alcohol)uses hard liquor everydayCommentsUnknownSex and Gender InformationValueDate RecordedSex Assigned at DijqkYmecqp03/20/2024 7:46 PM CDT Legal MapShuvkt30/04/2012 4:52 AM CSTGender UodioenhQbxtfb00/20/2024 7:46 PM CDT Sexual QmtfuhgbpnsUdyvoxyx18/20/2024 7:46 PM CDT Last Filed Vital Signs Vital SignReadingTime TakenCommentsBlood Puslggwl422/8912/24/2017 8:18 AM RETAIL ASSISTANT STORE MANAGER Pppdo884112/24/2017 8:18 AM LJTWqgjiatpidx28.2 ??C (97.1 ??F)12/24/2017 8:18 AM CSTRespiratory Eswj916812/24/2017 8:18 AM CSTOxygen Afqjjzteou862%12/21/2017 3:17 AM CSTInhaled Oxygen Concentration--Xkimyv00.2 kg (135 lb)12/21/2017 12:45 AM YQDRjcxct527.2 cm (5' 7)12/21/2017 12:45 AM CSTBody Mass Index21.14012/21/2017 12:45 AM RETAIL ASSISTANT STORE MANAGER Plan of Treatment Not on file Advance Directives For more information, please contact: [phone] * Full Code (Latest Code Status on File) Date ActivatedDate InactivatedComments12/21/2017 3:41 AM12/24/2017 4:07 PM Care Teams Team MemberRelationshipSpecialtyStart DateEnd Date No Ref-Primary, Physician PCP - General12/21/17
--- OUTSIDE RECORDS SUMMARY | 2025-10-20 13:45 | XMS_ITS | Clinical Summary ---
Author Organization [facility] [employer] [facility] Address [address] [place] [phone] Phone Care Team Providers Care Comp Field Case Manager Name Role Phone Elsewhere, Pcp Primary Care Provider Sarah Wooten MD Unavailable [phone] Allergies No known active allergies Medications * This document contains information received from the source organization and may not represent a complete record from that organization. MedicationSigDispense QuantityRefillsLast FilledStart DateEnd DateStatus citalopram (CELEXA) 10 MG tablet Take 1 Tab by mouth one time a day. 31 Tab Active citalopram (CELEXA) 20 MG tablet 20 mg daily x 2 weeks then may increase to 40 mg 60 Tab Active omeprazole (PRILOSEC) 20 MG delayed-release capsule Take 1 Cap by mouth one time a day. Take before meals. Do not crush. 31 Cap 111Active Zofran ODT 4 MG disintegrating tablet Take 1 Tab by mouth every six hours as needed for Nausea or Vomiting. 10 Tab 10/07/2020Active Active Problems ProblemNoted DateDiagnosed DateHistory of gestational logryljf94/17/2019Rh negative state in antepartum cyofcr7204/30/2018Prenatal care, subsequent 04/30/2018PTSD (post-traumatic stress disorder)02/27/2018Alcohol use disorder, severe, mddjcgijgb48/09/2018 Overview (02/27/2018): Sober 53 days as of 02/27/18. Cannabis sznophpehz78/09/2018 Overview (02/27/2018): Sober 53 days as of 02/27/18. Benzodiazepine mtmrzewsin57/09/2018 Overview (02/27/2018): Sober 53 days as of 02/27/2018 Stimulant use /09/2018 Overview (02/27/2018): History of meth, cocaine and prescription stimulants. Tobacco nijtrwpgcc41/09/2018Esophageal ivznnb4908/15/2007Major depressive disorder, recurrent episode, tpmkcewz35/27/2007Nausea with qgdobxvf92/10/2007 Resolved Problems ProblemNoted DateDiagnosed DateResolved DateAbdominal pain, generalized Overview (02/09/2012): IMO Update 08/01 Lyme fqccavd46 Immunizations ImmunizationAdministration DatesNext DueDTaP <7 years08/04/1994Human Papilloma Virus 9007/01/2015Human Papilloma Virus Abwxvrdlbytf47/14/2014,11/02/2006 Influenza Trivalent Live Intranasal (Flumist)11/12/2009Influenza Trivalent Preservative Free07/13/2010Influenza Unspecified Urjkdrryajs13/22/2010MMR 08/05/2009,12/21/2008,08/04/19947609Vwqrgem09/10/2007Mantoux 0mm Induration 11/02/2006OPV (Historic Use Only)08/04/1994Tdap (7 years and older)10/30/2018, 05/27/2013Tdap-Tetanus, Diphtheria, Pertussis 11+ Yrs08/22/2006 Surgical History SurgeryDateSite/LateralityCommentsKNEE ARTHROSCOPY/OVVDBSC8010/10/2000 left EGD BIOPSY SINGLE/IDABYSPM24/12/2007 UPPER GASTROINTESTINAL MWBBPOTWP86/07/2017 ([facility]) Medical History Medical HistoryDateCommentsLyme dzaarpf5110/10/2001Other, mixed, or unspecified nondependent drug abuse, jhhykqxoajq41/10/2007Marijuana use currently and methamphetamine and adderall abuse in the pastAbdominal pain, unspecified site 10/11/20063001Kkejeuv81/21/2006Urinary tract infection, site not xqiasrjfk58/21/2006 Acute agolzhpddud66/21/2006Multiple timesOther malaise and mkhanwq7308/22/2006Pain in limb07/16/2006Right lower extremity pain chronicContusion of elbow07/16/2006 RightSprain and strain of unspecified site of knee and leg07/09/2006LeftMyopia 10/02/2001Astigmatism, qxjjilqyxlf46/12/2001Nausea with oudzoffq28/12/2006Other specified disorder of the cgqzhejat99/12/2007Orthostatic wakwmjnoffr90/24/2008 Drug /24/2008Possible drug reaction (Ativan) Family History Medical HistoryRelationCommentsAsthmaBrotherDiabetesFatherOther Endocrine DiseaseFatherhypothyroid, hypertension,Psychiatric DiseaseFatherBipolar, PTSD, Manic depressionAsthmaMotherPsychiatric DiseaseMotherBipolarOphthalmic Disease OtherMyopiaOther Endocrine DiseaseSister 1hypothyroidPsychiatric DiseaseSister 2 BipolarBlood DiseaseNegative Family HxCancerNegative Family HxCardiovascular DiseaseNegative Family HxGI DiseaseNegative Family HxRelationStatusComments BrotherFatherMotherOtherSister 1Sister 2 Social History Tobacco UseTypesPacks/DayYears UsedDateSmoking Tobacco: FormerCigarettes0.52 10/07/2006 - 10/07/2008Smokeless Tobacco: Never Tobacco Cessation:Ready to Q uit: No; Counseling Given: Yes Alcohol UseStandard Drinks/WeekCommentsNo0 (1 standard drink = 0.6 oz pure alcohol)PHQ-2AnswerDate RecordedPHQ-2 Ianwq455CommentsNoSex and Gender InformationValueDate RecordedSex Assigned at BirthNot on fileLegal Sex Muyojk0012/03/2012 2:00 AM CSTGender IdentityNot on fileSexual OrientationNot on file Obstetrics History GravidaParaTermPretermABIABSABEctopicMolarMultipleLivingLive [id number] DateOutcomeGATotal LaborLabor/2nd/4feBmrzvfUfvRkifOfxdZEIPniQ1Z1MwduWrsr 10/08/20103122Nqgq03o7s3638 g (5 lb 12 oz)FINDUCTIONEpiduralLivingDelivery Location: [place], [place]06/19/20121790DRI2c0rLLP39/12/9800Hzyi35t7x0493 g (7 lb 1 oz)M INDUCTIONEpiduralNLivingComplications:Other Excessive BleedingDelivery Location: [place]09/04/20179082Bxeb76r9s7631 g (6 lb 8 oz)FINDUCTIONEpiduralN LivingDelivery Location:[place] MNGravida Last Filed Vital Signs Vital SignReadingTime TakenCommentsBlood Hnrpobjr053/8510/07/2020 1:31 AM MEDICAL TECHNOLOGIST CHIEF Xdtxd358410/07/2020 1:31 AM YIFYxaylpehnfj96.6 ??C (99.6 ??F)10/07/2020 1:31 AM CSTRespiratory Bqxd192912/08/2019 1:31 AM CSTOxygen Gjyzxyiqlu993%10/07/2020 1:31 AM CSTInhaled Oxygen Concentration--Oocpre25.8 kg (145 lb)10/06/2020 6:01 PM MEDICAL TECHNOLOGIST CHIEF Ezuplq619.2 cm (5' 7)10/06/2020 6:01 PM CSTBody Mass Index22.7110/06/2020 6:01 PM MEDICAL TECHNOLOGIST CHIEF Plan of Treatment Health MaintenanceDue DateLast DoneCommentsCervical Cancer Ydxbnsuqa1991 Last pap w/ HPV Trjgnna64 1991Last pap w/o HPV Lowllgv39 1991Hepatitis B Vaccine (Standing Order) (1 of 3 - 19+ 3-dose series)2010COVID-19 Vaccine ( - 2024- season)2025Influenza Vaccine Seasonal (Standing Order) (#1) 5007/13/2010, 11/12/2009, 11/12/2009TETANUS (Standing Order)10/30/2028 10/30/2018, 05/27/2013, 08/22/2006, Additional history existsHPV Vaccine (Standing Order)Lojxbhrlz93/10/2015, 05/04/2014, 11/02/2006PERTUSSIS (Standing Order)Oopxwyyft62/09/2019, 05/27/2013, 08/22/2006, Additional history exists Pneumococcal/PCV20 Vaccine: Pediatrics (2-5 yrs) and At-Risk Patients (6-49 yrs) (Standing Order)Aged OutNo longer eligible based on patient's age to complete this topic Insurance * Guarantor: VERONIKA GIRALDO TypeRelation to PatientDate of BirthPhone Billing WxlgavoScvhqzotNjjb1990 [address] [place] [address] * Guarantor: [employer] [facility]ENTERAccount TypeRelation to Patient Date of BirthPhoneBilling AddressCompany with InsuranceOther ATTAbundio CEDEÑO [address] [place] [address] * Guarantor: Veronika Giraldoount TypeRelation to PatientDate of BirthPhone Billing AddressPersonal/QykcluBjqj1990 [address] [address] * Guarantor: Veronika Giraldoount TypeRelation to PatientDate of BirthPhone Billing AddressPersonal/DoqvgyQbkl1990 [phone] [address] Care Teams Team MemberRelationshipSpecialtyStart DateEnd Date Elsewhere, Pcp PCP - General02/09/11 Sarah Hdz MD [address] [phone] ObstetricianOB/Gyn06/06/18
[2025-10-20 13:49] VITALS: BP 127/86; PULSE 108; RESP 28; TEMP 37.1; O2SAT 99; BMI 22.4
--- NOTE | 2025-10-20 14:40 | ED_ITS ---
HPI - Psych General Chief Complaint: Psychiatric Problem/Disorder Stated Complaint: Rt wrist cut, chest pain, finger tips cold Time Seen by Provider: 10/20/25 14:17 History of Present Illness HPI Narrative: This 35-year-old female comes in reporting lots of anxiety and states that she occasionally has a crisis with her anxiety as she did today. She did self injury by cutting her forearm and has superficial abrasions with 1 small area of full-thickness injury. She states that she has been on medicines for depression and anxiety for many years and currently is not taking any medications. She does have Ativan at home but did not use it and normally does not use Ativan at all. She does have a addiction history and states that she has been sober for 4 years. She denies any intent to end her life and does not feel unsafe to herself. Related Data Home Medications ?Medication ?Instructions ?Recorded ?Confirmed lorazepam 1 mg tablet 1 mg PO DAILY PRN anxiety 08/20/25 Previous Rx's ?Medication ?Instructions ?Recorded aripiprazole 2 mg tablet (Abilify) 2 mg PO DAILY #20 t abs 10/20/25 escitalopram oxalate 5 mg tablet 5 mg PO DAILY #20 tab s 10/20/25 (Lexapro) Allergies Allergy/AdvReac Type Severity Reaction Status Date / Time No Known Drug Allergies Allergy Verified 08/20/25 21:21 Review of Systems Status of ROS: Reports: 10 or more systems reviewed and unremarkable except as noted in History and below Narrative: Constitutional: No fevers, no weight gain or loss. Eyes: No discharge. No vision changes. HENT: No congestion, no sore throat, no ear pain. Cardiovascular: No chest pain, no palpitations. Respiratory: No shortness of breath, no wheezes, no cough. Gastrointestinal: No abdominal pain, no vomiting, no diarrhea. Genitourinary: No dysuria, no hematuria. Musculoskeletal: Normal range of motion. Skin: No rashes, no pruritis. Neurological: No dizziness, weakness, sensory change, speech change. Endo/Heme/Allergies: No bruising or bleeding. No polydipsia. Pysch: no suicidality, no insomnia. She reports lots of anxiety. All other systems reviewed and are negative. PFSH PFSH Social History Smoking Status: Current every day smoker Do you use any of these nicotine containing products: None Second hand tobacco smoke exposure: No How often do you have a drink containing alcohol: never AUDIT-C Alcohol total score: 0 Non-prescribed substance use: denies use service: No Exam Narrative: Exam Narrative: Constitutional: Well-developed, well-nourished, no acute distress. HEENT: Normocephalic, atraumatic. Neck: Normal range of motion. Nontender. Supple. Heart: Intact distal pulses. Lungs: No chest discomfort. No wheezes, rhonchi, or rales. Abdomen: Nontender. Back: Normal range of motion. Extremities: Normal range of motion. No injury. Skin: Intact. No rash. Warm. No erythema or pallor. Neurologic: No altered sensation. No weakness. Alert and oriented. Psychiatric: No suicidality. She is pleasant and cooperative but does appear anxious. Nursing notes and vitals signs are reviewed. Const: Vital Signs, click to edit/add: Vital Signs - 24 hr 10/20/25 13:49 Temperature 98.8 F Pulse Rate [Pulse Oximeter] 108 H Respiratory Rate 28 H Blood Pressure [Le ft Upper Arm] 127/86 Pulse Oximetry 99 Oxygen Delivery Me thod Room Air Course Vital Signs Vital signs: Initial Vital Signs Temperature 98.8 F 10/20/25 13:49 Temperature Source Temporal Artery Scan 10/20/25 13:49 Pulse Rate 108 H 10/20/25 13:49 Respiratory Rate 28 H 10/20/25 13:49 Blood Pressure 127/86 10/20/25 13:49 Blood Pressure Mean 99 10/20/25 13:49 Pulse Oximetry 99 10/20/25 13:49 Oxygen Delivery Method Room Air 10/20/25 13:49 Vital Signs Temperature 98.8 F 10/20/25 13:49 Pulse Rate 108 H 10/20/25 13:49 Respiratory Rate 28 H 10/20/25 13:49 Blood Pressure 127/86 10/20/25 13:49 Pulse Oximetry 99 10/20/25 13:49 Oxygen Delivery Method Room Air 10/20/25 13:49 Temperature 98.8 F 10/20/25 13:49 Pulse Rate 108 H 10/20/25 13:49 Respiratory Rate 28 H 10/20/25 13:49 Blood Pressure 127/86 10/20/25 13:49 Pulse Oximetry 99 10/20/25 13:49 Oxygen Delivery Method Room Air 10/20/25 13:49 Medications Administered Medications: Discontinued Medications Generic Name Dose Route Start Last Admin Trade Name Medardo PRN Reason Stop Dose Admin Lorazepam 1 mg 10/20/25 14:39 10/20/25 14:45 Lorazepam 1 Mg Tablet PO 10/20/25 14:40 1 mg ONCE ONE Administration MDM - Psych MDM Narrative Medical decision making narrative: This patient comes in reporting lots of anxiety and currently is not taking any medicines. She denies using any street drugs or alcohol. She has a small abrasion on her right forearm that I did cleanse and repair with [employer]. She denies any intent to harm herself or feel unsafe to herself. She is here with her father who is supportive and agrees that she is okay to return home. I did discuss treatment options and the patient is agreeable to try Lexapro and a small dose of Abilify. Prescriptions for these meds are provided to her prefer pharmacy. She also received information for establishing therapy appointment through the [employer] a system here. She recently moved into this area and needs to reestablish such care. Discharge Plan Discharge Clinical Impression: Acute anxiety, Laceration Patient Disposition: Home w/ Parent or Adult Condition: Stable Additional Instructions: follow-up with therapist through to the [facility] systems. Take medications as prescribed. Use Ativan also as needed and directed for additional relief of anxiety symptoms. Return if worsening. Prescriptions: New escitalopram oxalate [Lexapro] 5 mg tablet 5 mg PO DAILY Qty: 20 2RF aripiprazole [Abilify] 2 mg tablet 2 mg PO DAILY Qty: 20 2RF No Action lorazepam 1 mg tablet 1 mg PO DAILY PRN (Reason: anxiety) Follow Up/Referrals: Provider,Not a Local [Primary Care Provider, Family Practice] Stand Alone Forms: [employer] Info Instructions
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
[2025-10-20 14:59] VITALS: PULSE 67; RESP 20; O2SAT 97
== END 2025-10-20 15:13 | disposition home or self-care (01) ==
PROVIDERS: Emergency Provider Emergency Medicine Emergency Medical Services
DX: F41.9 Anxiety disorder, unspecified (principal); S50.811A Abrasion of right forearm, initial encounter; W45.8XXA Other foreign body or object entering through skin, initial encounter
CPT/HCPCS: 99283; 99284; A9270